=== PATIENT | female | born 1960 | race African-American/Black ===

== ENCOUNTER → 2016-07-11 | Outpatient (CLI) | payer OTHER ==
[~2016-07-11] MED LIST: ACID REDUCER OTC; ALPRAZOLAM; ALPRAZOLAM1 MG PO; AMITRIPTYLINE H25 MG PO; AMLODIPINE BESY10 MG PO; AMLODIPINE PO; ANUSOL-HC25 MG/SUPP; CALCIUM 600 + D1 TAB PO; CALCIUM 600 +1 EAC3 PO; CENTRUM SILVER PO; CRESTOR PO; CRESTOR10 MG PO; FIORICET 50-321 EACH PO; FISH OIL 1,001000 M1 PO; FOLIC ACID PO; GARLIC; GARLIC OIL1000 MG; GARLIC PO; GARLIC1000 MG PO; HAIR VITAMIN PO; HYDROCODON-ACE1 EAC4 PO; HYDROCODON-ACE1 EAC5 PO; HYDROCODONE-APA1 T51; IBUPROFEN; IBUPROFEN800 MG PO; IRON1 TAB PO; JANUVIA PO; KRILL OIL 1,001 EAC1 PO; LEVOTHYROXINE25 MC1 PO; LISINOPRIL PO; LORTAB 7.5-5001 TAB; METFORMIN HCL500 M1 PO; METFORMIN HCL500 M2 PO; METROGEL-VAGINA70 GM VG; MULTIVITAMIN; MULTIVITAMIN1 UDCAP; NATURAL VITA400 UNI3 PO; NIACIN ER500 MG PO; NIASPAN PO; NOLVADEX PO; NORETHINDRONE; NORVASC; NORVASC10 MG PO; OMEGA 3 FISH OIL; OMEPRAZOLE40 M1 PO; PRAVASTATIN SOD20 MG PO; PROBIOTIC1 EAC5; RED YEAST RICE; TAMOXIFEN CITRA20 MG PO; VITAMIN B-6200 MG PO; VITAMIN C; VITAMIN D1000 UNI1; VITAMIN D1000 UNIT PO; VITAMIN D31000 UNI1 PO; VITAMIN E400 UNI1 PO; VITAMIN E400 UNI2 PO; [UNRECOGNIZED DRUG - OTHER]; [UNRECOGNIZED DRUG - OTHER]; [UNRECOGNIZED DRUG - OTHER]; [UNRECOGNIZED DRUG - OTHER] PO
--- NOTE | ~2016-07-11 | MY11 ---
[facility] A Service of [facility] & [facility] RADIOLOGY TEXT RESULTS PATIENT: BHUMIKA AUGUST LOCATION: [facility] : 62 UNIT #: [id number] AGE: [address]: Sarabjit Wise Jr GENERAL SUPERINTENDENT SEX: F ORDER DR: [id number] [facility] [address] [place], [place] [address] [id number] O MR#: [id number] Acc #: [id number] NAME: BHUMIKA AUGUST : 1960 SEX: F STUDY DATE/TIME: 07/11/2016 7:49 UNIT: [facility] ROOM: STUDY DESCRIPTION: MY Mammogram Screening Dig [place] Attending Physician: Sarabjit Wise Jr., ConniePWaldemarRGisela Referring Physician: aSrabjit Wise Jr., ThomasRGisela Ordering Physician: Sarabjit Wise Jr., Ginette.P.RGisela Primary Care Physician: Sarabjit Wise Jr., ConniePWaldemarRGisela MEDICAL IMAGING REPORT This report is preliminary unless electronic signature is present EXAM Bilateral digital screening mammogram with CAD. DATE 07/11/2016 HISTORY History of breast cancer with lumpectomy in 2008. Benign left breast biopsy many years ago per patient. Benign right breast stereotactic biopsy December 2013. No current complaints. COMPARISON Bilateral diagnostic mammogram 07/10/2015, 07/07/2014, 07/05/2013. TECHNIQUE CC and MLO views were obtained of each breast utilizing digital technique and reviewed with an FDA-approved CAD device. FINDINGS The right breast is smaller than the left, with diffuse skin thickening, and subareolar asymmetric increased parenchymal density and architectural distortion. These features in keeping with the history of lumpectomy. Correlate for history of radiation therapy, as well. The findings appear unchanged from prior. A biopsy clip within the lateral right breast near the 9 o'clock position is unchanged, associated with an island of fibroglandular tissue which, on the CC view, appears similar to the 07/07/2014 exam. Focal island of fat necrosis within the central right breast is unchanged. Scattered fibroglandular densities are present bilaterally. No new or developing nodule is identified. No definite nonsurgical architectural distortion is seen. No suspicious developing microcalcifications are evident. [facility]. [facility] [place] Service of [facility] RADIOLOGY TEXT RESULTS PATIENT: BHUMIKA AUGUST LOCATION: [facility] : 62 UNIT #: [id number] AGE: [address]: Sarabjit Wise Jr GENERAL SUPERINTENDENT SEX: F ORDER DR: PACO BIRADS category 2. Benign findings. Stable findings in the right breast since previous examinations. Routine bilateral screening mammogram recommended in 1 year. Patients over the age of 40 are entered into a reminder system with target due date for the next mammogram. A result letter will also be sent to the patient. BIRADS: 2 Benign finding. Dictated by... Cande Bennett M.D. THIS IS AN ELECTRONICALLY VERIFIED REPORT Cande Bennett M.D. at 07/12/2016 2:22 PM SAMI/von TD: 07/11/2016 09:57 JOB #: [id number] MEDICAL IMAGING REPORT Page 1 of 1 COPY
== END | disposition home or self-care (01) ==
LOC: CWCC 07:28
DX: Z12.31 Encounter for screening mammogram for malignant neoplasm of breast (principal); Z85.3 Personal history of malignant neoplasm of breast; Z98.890 Other specified postprocedural states
CPT/HCPCS: G0202

== ENCOUNTER → 2016-10-23 | Outpatient (CLI) | payer OTHER ==
--- NOTE | ~2016-10-23 | HM ---
Unit #: [id number] #: [id number] Patient: BHUMIKA AUGUST [id number] [address] [address] [id number] O MR#: [id number] NAME: BHUMIKA AUGUST : 1960 SEX: F STUDY DATE/TIME: UNIT: [facility] ROOM: STUDY DESCRIPTION: Holter Monitor Attending Physician: Sarabjit Wise Jr., A.P.R.N. Referring Physician: Sarabjit Wise Jr., A.P.R.N. Primary Care Physician: Sarabjit Wise Jr., A.P.R.N. CARDIOLOGY REPORT EXAM Holter Monitor DATE APPLIED 10/23/2016 DATE SCANNED 10/29/2016 ORDERED BY Sarabjit Wise Jr., A.P.R.N. READ BY Dr. Jeannie Kelly REASON FOR TEST Palpitations. DESCRIPTION 1. Basic rhythm is normal sinus rhythm. Total beats 121,181. Average heart rate 84 per minute. Heart rate varies from 58 per minute at 0034 to 130 per minute at 1528. 2. No significant ventricular arrhythmias noted. No significant atrial arrhythmias noted. No high grade AV blocks noted. No diary with the symptoms available. Dictated by... Bernard Kim/reema TD: 10/30/2016 07:48 JOB #: [id number] Unit #: [id number] #: [id number] Patient: BHUMIKA AUGUST CARDIOLOGY REPORT Page 1 of 1 X Devendra Kelly MD HOLTER MONITOR REPORT
== END | disposition home or self-care (01) ==
LOC: CECH 12:24
DX: R00.2 Palpitations (principal); I51.7 Cardiomegaly
CPT/HCPCS: 93225; 93226; 93306